=== PATIENT | female | born 1935 | race Caucasian/White ===

== ENCOUNTER 2017-02-24 17:05 | Observation (INO) | payer MEDICARE ==
[~2017-02-24] VITALS: Ht 160 cm; Wt 68.2 kg
[~2017-02-24 17:05] MED LIST: CIPR500T4 PO; CLOP75TA27 PO; METO25TA4 PO; ONDA4TAB8 PO; PANT40TA4 PO; SERT25TA83 PO
[2017-02-24] MEDS ORDERED: ONDANSETRON 4 MG INJ IV STA (17:32)
[2017-02-24] MEDS ORDERED: LORAZEPAM 2 MG INJ IV ONE (18:00)
[2017-02-24 18:21] LABS: ADD SCAN DIFF NO
[2017-02-24 18:23] LABS: BASOPHILS % 0.2 % (0.0-2.0); EOSINOPHILS # 0.1 10^3/ul (0.0-0.5); EOSINOPHILS % 1.2 % (0.0-7.0); HEMATOCRIT 39.8 % (37.0-47.0); HEMOGLOBIN 13.3 g/dl (12.0-16.0); LYMPHOCYTES # 1.1 10^3/ul (0.8-2.9); LYMPHOCYTES % 12.1 % (15.0-51.0); MEAN CORPUSCULAR HEMOGLOBIN 30.8 pg (29.0-33.0); MEAN CORPUSCULAR HGB CONC 33.4 g/dl (32.0-37.0); MEAN CORPUSCULAR VOLUME 92.1 fl (82.0-101.0); MEAN PLATELET VOLUME 9.5 fl (7.4-10.4); MONOCYTE # 0.4 10^3/ul (0.3-0.9); MONOCYTES % 4.1 % (0.0-11.0); NEUTROPHIL # 7.6 10^3/ul (1.6-7.5); NEUTROPHILS % 81.5 % (39.0-77.0); PLATELET COUNT 279 10^3/UL (140-415); RED BLOOD COUNT 4.32 10^6/ul (4.20-5.40); RED CELL DISTRIBUTION WIDTH 12.8 % (11.5-14.5); WHITE BLOOD COUNT 9.3 10^3/ul (4.8-10.8)
[2017-02-24] MEDS ORDERED: NIT4 SL (18:32)
[2017-02-24 18:34] LABS: INR 0.91; PROTIME 12.3 Sec (12.2-14.2)
[2017-02-24 18:35] LABS: PARTIAL THROMBOPLASTIN TIME 22.6 Sec (25.0-35.0)
[2017-02-24 18:42] LABS: CHLORIDE 103 mmol/L (97-110); SODIUM 140 mmol/L (135-144)
[2017-02-24 18:45] LABS: ANION GAP 16 (8-16); BLOOD UREA NITROGEN 16 mg/dl (7-20); CARBON DIOXIDE 25 mmol/L (21-31); CREATININE 0.57 mg/dl (0.44-1.00); GLUCOSE 158 mg/dl (70-220)
[2017-02-24 18:46] LABS: CALCIUM 9.5 mg/dl (8.4-10.2)
--- NOTE | 2017-02-24 19:03 | RADRPT ---
PROCEDURE: CT Brain without contrast. CLINICAL INDICATION: Possible Stroke TECHNIQUE: A CT of the brain was performed utilizing axial imaging from the skull base through the vertex without IV contrast. Multiplanar reformatted images were made. Images were reviewed on a Get In workstation. The CTDIvol is 44 mGy and the DLP is 720 mGycm. COMPARISON: Head CT March 21, 2016 FINDINGS: There is moderate diffuse cerebral volume loss with sulcal and ventricular dilatation. No discrete extra-axial fluid collection or masses seen. The ventricles are in the midline and of normal contou r and configuration. There is normal diaz-white discrimination throughout the brain with no evidenc e of an infarct. No intracranial hemorrhage or mass is identified. There is normal aeration of the visualized paranasal sinuses. IMPRESSION: Age-appropriate atrophy. No intracranial hemorrhage or mass. No infarct identified. .Carlos Brooks MD, MD Date Time Electronically viewed and signed by .Carlos Brooks MD, on 02/24/2017 19:02 .A/
--- NOTE | 2017-02-24 19:18 | RADRPT ---
PROCEDURE: XR Chest. CLINICAL INDICATION: Stroke and dyspnea TECHNIQUE: AP Portable chest. COMPARISON: 09/08/2016 chest x-ray FINDINGS: The soft tissues and bones are normal. Hyperinflation is present. Correlate with radiographic evide nce for COPD. No focal infiltrates, masses, or effusions are noted. The mediastinum and heart are remarkable for mild cardiomegaly and vascular calcifications of the thoracic aorta.. No pneumothora x is present. IMPRESSION: 1. No radiographic evidence for acute cardiopulmonary disease. 2. Hyperinflation and correlate with radiographic evidence for COPD. 3. Mild cardiomegaly and atherosclerotic vascular disease RPTAT: HDC .Shoshana Rm MD, MD Date Time Electronically viewed and signed by .Shoshana Rm MD, on 02/24/2017 19:17 .C/
--- NOTE | 2017-02-24 19:29 | RADRPT ---
PROCEDURE: CT abdomen and pelvis without contrast. CLINICAL INDICATION: Abdominal Pain TECHNIQUE: CT scan of the abdomen and pelvis without contrast was performed and is reconstructed a t 2.5 mm contiguous axial intervals from the dome of the diaphragm to the inferior pubic rami.. The patient was scanned without intravenous contrast. Sagittal and coronal reformatted images were obt ained from the axial source images. The calculated radiation dose measures 400 mGy centimeters. The CTDI measures 8 mGy. COMPARISON: None. FINDINGS: The lung bases are clear of any infiltrate or nodule. No effusion is seen. There is a small hiatal hernia. The liver is of normal size, contour and attenuation with no mass or ductal dilatation. No gallston es are visualized. No adrenal or pancreatic abnormalities present. there is a 1 cm indeterminate h ypodense nodule on the anterior spleen and a 1.5 cm indeterminate hypodense nodule on the dorsal asp ect of the spleen. Kidneys are of normal size and contour. No hydronephrosis, calculus or masses seen. Ureters are o f normal course and caliber with no stone. No bladder mass or stone is present. Uterus is atrophic. No adnexal masses present. There is a ring pessary in the pelvis. There is no aneurysm. There are vascular calcifications. No adenopathy is present. No bowel mass or obstruction is present. There are scattered diverticula. The appendix is normal. No phlegmon, ascites or pneumoperitoneum is visualized. There is a severe chronic compression fracture of L1. No acute osseous abnormality is present. IMPRESSION: No evidence of urolithiasis, obstructive uropathy, diverticulitis or appendicitis. Diverticulosis. Hiatal hernia. Vascular calcifications. Chronic compression fracture L1. .Carlos Brooks MD, MD Date Time Electronically viewed and signed by .Carlos Brooks MD, MD on 02/24/2017 19:29 .A/
[2017-02-24] MEDS ORDERED: ASPIRIN 325 MG TAB PO ONE (19:30)
[2017-02-24] MEDS ORDERED: ONDANSETRON 4 MG INJ IV PRN (20:00)
[2017-02-24 20:03] LABS: TROPONIN-I < 0.012 ng/ml (0.00-0.12)
--- NOTE | 2017-02-24 20:16 | ERA ---
ER Documentation Chief Complaint Date/Time DATE: 02/24/17 TIME: 20:13 Chief Complaint n/v, dizziness. pt. actively vomiting in triage. HPI Patient is a 81-year-old female with hypertension who presents with dizziness and vomiting. She tried Zofran without any help. The symptoms started at 2:30 PM and had been constant. She feels like the room is spinning. She denies diarrhea. She has no headache and no abdominal pain. She has no weakness and no slurred speech. Upon review of old medical records this the patient's eighth visit to the ER since 2007. She does not know the name of her primary doctor. ROS All systems reviewed and are negative except as per history of present illness. Medications Home Meds Active Scripts Ondansetron Hcl* (Zofran*) 4 Mg Tablet, 4 MG PO Q8H Y for NAUSEA AND/OR VOMITING , #20 TAB Prov:LINDSEY COPPOLA MD 09/08/16 Reported Medications Nitroglycerin* (Nitrostat*) 0.4 Mg Tab.subl, 0.4 MG SL Q5MIN Y for CHEST PAIN, BOTTLE NEEDED 02/24/17 Clopidogrel Bisulfate (Clopidogrel) 75 Mg Tablet, 75 MG PO DAILY, #30 TAB 09/08/16 Metoprolol Tartrate* (Lopressor*) 25 Mg Tablet, 25 MG PO DAILY, #30 03/18/16 Discontinued Reported Medications Sertraline Hcl* (Sertraline Hcl*) 25 Mg Tablet, 25 MG PO DAILY for 30 Days 03/18/16 Pantoprazole* (Pantoprazole*) 40 Mg Tablet.dr, 40 MG PO AC BREAKFAST for 30 Days 03/18/16 Discontinued Scripts Ciprofloxacin Hcl* (Ciprofloxacin Hcl*) 500 Mg Tablet, 500 MG PO BID for 5 Days , TAB Prov:LINDSEY COPPOLA MD 09/08/16 Allergies Allergies: Coded Allergies: Penicillins (Verified Allergy, Mild, RASHES, 02/24/17) acetaminophen (Verified Allergy, Mild, RASHES, 02/24/17) PMhx/Soc History of Surgery: Yes (vascular surgery) Anesthesia Reaction: No Hx Neurological Disorder: No Hx Respiratory Disorders: No Hx Cardiac Disorders: No Hx Psychiatric Problems: Yes Hx Miscellaneous Medical Probl: No Hx Alcohol Use: No Hx Substance Use: No Hx Tobacco Use: No Smoking Status: Never smoker FmHx Family History: No diabetes Physical Exam Vitals Vital Signs Date Time Temp Pulse Resp B/P Pulse Ox O2 Delivery O2 Flow Rate FiO2 02/24/17 20:00 61 18 142/62 96 Room Air 02/24/17 19:17 62 13 168/83 99 Room Air 02/24/17 18:09 Nasal Cannula 2 02/24/17 17:11 97.8 70 20 200/86 95 Physical Exam Const: Moderate distress secondary to vomiting Head: Atraumatic Eyes: Normal Conjunctiva ENT: Normal External Ears, Nose and Mouth. Neck: Full range of motion..~ No meningismus. Resp: Clear to auscultation bilaterally Cardio: Regular rate and rhythm, no murmurs Abd: Soft, non tender, non distended. Normal bowel sounds Skin: No petechiae or rashes Back: No midline or flank tenderness Ext: No cyanosis, or edema Neur: Awake and alert, cranial nerves II through XII intact, able to move all 4 extremities Result Diagram: 02/24/17180902/24/171809 Results 24 hrs Laboratory Tests Test 02/24/17 18:10 White Blood Count 9.310^3/ul Red Blood Count 4.3210^6/ul Hemoglobin 13.3g/dl Hematocrit 39.8% Mean Corpuscular Volume 92.1fl Mean Corpuscular Hemoglobin 30.8pg Mean Corpuscular Hemoglobin Concent 33.4g/dl Red Cell Distribution Width 12.8% Platelet Count 23677^3/UL Mean Platelet Volume 9.5fl Neutrophils % 81.5% Lymphocytes % 12.1% Monocytes % 4.1% Eosinophils % 1.2% Basophils % 0.2% Nucleated Red Blood Cells % 0.0/100WBC Neutrophils # 7.610^3/ul Lymphocytes # 1.110^3/ul Monocytes # 0.410^3/ul Eosinophils # 0.110^3/ul Basophils # 0.010^3/ul Nucleated Red Blood Cells # 0.010^3/ul Prothrombin Time 12.3Sec Prothrombin Time Ratio 1.0 INR International Normalized Ratio 0.91 Activated Partial Thromboplast Time 22.6Sec Sodium Level 140mmol/L Potassium Level 4.0mmol/L Chloride Level 103mmol/L Carbon Dioxide Level 25mmol/L Anion Gap 16 Blood Urea Nitrogen 16mg/dl Creatinine 0.57mg/dl Glucose Level 158mg/dl Hemoglobin A1c 6.3% Calcium Level 9.5mg/dl Troponin I < 0.012ng/ml Current Medications Medications (Trade) Dose Ordered Sig/Alejandrina Route PRN Reason Start Time Stop Time Status Last Admin Dose Admin Ondansetron HCl (Zofran Inj) 4 mg ONCE STAT IV 02/24/17 17:32 02/24/17 17:34 DC 02/24/17 19:06 Lorazepam (Ativan) 0.5 mg ONCE ONCE IV 02/24/17 18:00 02/24/17 18:01 DC 02/24/17 19:06 Aspirin (Aspirin) 325 mg ONCE ONCE PO 02/24/17 19:30 02/24/17 19:31 DC 02/24/17 19:36 Ondansetron HCl (Zofran Inj) 4 mg ER BRIDGE PRN IV NAUSEA AND/OR VOMITING 02/24/17 20:00 02/25/17 19:59 Procedures/MDM EKG read by me: Rate/Rhythm: Regular rate and rhythm at a rate of 66 Intervals: Normal Impression: No evidence of ischemia or arrhythmia CT head shows no acute intracranial hemorrhage per radiology. Patient is a 81-year-old female with hypertension presents with dizziness and vomiting. I am concerned about a potential posterior circulation stroke. The onset of these symptoms were is unclear and I do not believe she is a TPA candidate at this time. The patient was given aspirin after she passed a swallow evaluation. She had an NIH stroke scale performed by nursing. The patient will be admitted to the panel team and I spoke with Dr. Thompson. She will be admitted to a telemetry bed. I doubt acute coronary syndrome, intra-cranial hemorrhage, or intracranial mass. Departure Diagnosis: Primary Impression: Dizziness Additional Impression: Vomiting Qualified Code: R11.2 - Intractable vomiting with nausea, unspecified vomiting type Condition: ERIK Baeza MD Feb 24, 2017 20:16
[2017-02-24 20:30] VITALS: TEMP 97.1
[2017-02-24 21:14] VITALS: PULSE 69
[2017-02-24 21:21] VITALS: BP 158/71; RESP 17
[2017-02-24 22:31] VITALS: Ht 160 cm; Wt 68.2 kg
[2017-02-25] VITALS (14 sets, daily range): BP systolic 139–188; BP diastolic 70–87; PULSE 53–63; RESP 16–22
--- NOTE | 2017-02-25 06:46 | HP ---
Date/Time of Note Date/Time of Note DATE: 02/25/17 TIME: 06:37 Assessment/Plan VTE Prophylaxis VTE Prophylaxis Intervention: heparin Assessment/Plan Assessment/Plan 1. Dizziness/Vertigo - Cont telemetry monitoring, fall precautions. Will obtain MRI of brain 2. Nausea/Vomiting: - likely 2/2 # 1. PRN anti-emetics. CT abd/pelvis was neg for acute findings 3. Essential hypertension - stable - continue med and adjust as needed 4. Type II DM - insulin while in house, hold metformin, check HgbA1c 5. Depression - continue with zoloft GI ppx - PPI DVT ppx - Heparin subq HPI/ROS Admit Date/Time Admit Date/Time Feb 24, 2017 at 19:43 Hx of Present Illness Patient is an 81 yo female with a past medical history of hypertension, type II DM, and depression who came in because of dizziness. For the last few days she has multiple episodes of vomiting, nausea, non-bilious/non-bloody in nature, with dizziness. c/o generalized weakness. She was admitted in March [address] head and carotid doppler u/s were neg. Denies any recent travel, chest pain, shortness of breath, blurriness in vision, headaches, urinary/bowel irregularities, fevers or other changes. She has never had this in the past. In ED she did have dizziness and vomited in triage. CT head was neg for any acute infarct. CT abd/pelvis showed hiatal hernia and chronic L1 compression fx , otherwise no acute findings. Lans and vitals ok. PMH/Family/Social Social History Smoking Status: Never smoker Exam/Review of Systems Vital Signs Vitals Vital Signs Date Time Temp Pulse Resp B/P Pulse Ox O2 Delivery O2 Flow Rate FiO2 02/25/17 04:53 57 02/25/17 04:02 98.6 21 154/76 97 02/24/17 20:30 Room Air 02/24/17 18:09 2 Exam Constitutional: other (No acute distress. sleepy, but arousable) Head: atraumatic, normocephalic Eyes: PERRL Respiratory: clear to auscultation, normal air movement Cardiovascular: nl pulses, regular rate and rhythm Gastrointestinal: soft Extremities: normal pulses Neurological: other (no focal weakness) Labs Result Diagram: 02/24/17180902/24/170 Medications Medications Current Medications Aspirin (Aspirin) 81 mg DAILY PO ; Start 02/25/17 at 09:00 Atorvastatin Calcium (Lipitor) 40 mg HS PO ; Start 02/25/17 at 21:00 Heparin Sodium (Porcine) (Heparin (5000 Units/0.5 ml)) 5,000 unit AM SC ; Start 02/25/17 at 09:00 STAR OLMOS MD Feb 25, 2017 06:46
[2017-02-25 07:23] LABS: ADD SCAN DIFF NO
[2017-02-25 07:28] LABS: BASOPHILS % 0.2 % (0.0-2.0); EOSINOPHILS # 0.2 10^3/ul (0.0-0.5); EOSINOPHILS % 1.9 % (0.0-7.0); HEMOGLOBIN 12.3 g/dl (12.0-16.0); LYMPHOCYTES # 1.4 10^3/ul (0.8-2.9); LYMPHOCYTES % 16.8 % (15.0-51.0); MEAN CORPUSCULAR HEMOGLOBIN 29.9 pg (29.0-33.0); MEAN CORPUSCULAR HGB CONC 32.4 g/dl (32.0-37.0); MEAN CORPUSCULAR VOLUME 92.2 fl (82.0-101.0); MEAN PLATELET VOLUME 9.6 fl (7.4-10.4); MONOCYTE # 0.6 10^3/ul (0.3-0.9); MONOCYTES % 6.9 % (0.0-11.0); NEUTROPHIL # 6.3 10^3/ul (1.6-7.5); NEUTROPHILS % 73.7 % (39.0-77.0); PLATELET COUNT 287 10^3/UL (140-415); RED BLOOD COUNT 4.12 10^6/ul (4.20-5.40); RED CELL DISTRIBUTION WIDTH 12.9 % (11.5-14.5); WHITE BLOOD COUNT 8.6 10^3/ul (4.8-10.8)
[2017-02-25 07:33] LABS: POTASSIUM 3.8 mmol/L (3.5-5.1)
[2017-02-25 07:35] LABS: CREATININE 0.61 mg/dl (0.44-1.00)
[2017-02-25 07:36] LABS: CHOL/HDL RATIO 2.3 RATIO
--- NOTE | 2017-02-25 13:40 | RADRPT ---
Echocardiogram Report Patient Name: CHERYL MORALES Gender: Female Date: 1935 Study Date: 25-Feb-2017 Relocation Commissioner: TRENT Anderson [facility] Location: 525 Ref. Physician: STAR OLMOS Quality: Adequate Procedures: Transthoracic echocardiogram with complete 2D, M-Mode, and doppler examination. Indications: vertigo. 2D/M Mode Doppler Measurement Value Normal Ranges Measurement Value Normal Ranges LVIDd 2D 4.1 3.5 - 5.6 cm AV Peak Yoel 1.9 m/sec LVIDs 2D 2.3 2.1 - 4.1 cm AV Peak PG 14.0 mmHg FS 2D 43.3 % LVOT Peak Yoel 1.4 m/sec LVPWd 2D 0.8 0.6 - 1.1 cm LVOT Peak PG 8.0 mmHg IVSd 2D 0.8 0.6 - 1.1 cm MV E Peak Yoel 0.9 m/sec IVS/LVPW 2D 1.0 MV A Peak Yoel 1.3 m/sec AoR Diam 2D 2.5 2.0 - 3.7 cm MV E/A 0.7 LA/Ao 2D 1 0 - 1 MV Decel Time 296 msec EDV 2D 66.9 cm3 MV E/A 0.7 ESV 2D 12.2 cm3 TR Peak Yoel 2.5 m/sec LA Dimen 2D 3.3 2.3 - 4.0 cm TR Peak PG 24.0 mmHg RVSP 27.0 mmHg Findings Left Ventricle: Normal left ventricular systolic function. Normal left ventricular cavity size. Normal left ventricular wall thickness. Ejection fraction is visually estimated at 65 %. Right Ventricle: Normal right ventricular size. Normal right ventricular systolic function. Left Atrium: There is moderate enlargement of left atrium. Right Atrium: There is mild enlargement of right atrium. Mitral Valve: Severe mitral annular calcification. Mild mitral valve regurgitation. Aortic Valve: No significant aortic stenosis or insufficiency. Aortic cusps appear mildly calcified. Tricuspid Valve: Normal appearance of the tricuspid valve. Estimated peak PA systolic pressure 26 mmHg. There is mild tricuspid regurgitation. Pulmonic Valve: Pulmonic valve not well visualized. Pericardium: Normal pericardium with no significant pericardial effusion. Aorta: Normal aortic root. IVC: Normal size and normal respiratory collapse consistent with normal right atrial pressure. Conclusions 1.Normal left ventricular systolic function. Normal left ventricular cavity size. Normal left ventricular wall thickness. Ejection fraction is visually estimated at 65 %. 2.No significant valvular stenosis or regurgitation seen. 3.Estimated peak PA systolic pressure 26 mmHg based on RA pressure of 3 mmHg. Electronically Signed By: Renato Helton 25-Feb-2017 13:40:03 -0700 Patient Name: CHERYL MORALES Study Date: 25-Feb-2017 [id number]
[2017-02-25] MEDS: ASPIRIN 81 MG TAB PO SCH (14:37)
[2017-02-25] MEDS: HEPARIN 5,000 UNIT/0.5 ML VIAL SC SCH (14:43)
--- NOTE | 2017-02-25 19:39 | RADRPT ---
PROCEDURE: MRI Brain without contrast. CLINICAL INDICATION: Dizziness, vomiting, vertigo TECHNIQUE: Multiplanar MRI of the brain without contrast was performed on a 3.0 T scanner with the following sequences obtained: T1-weighted, T2-weighted/FLAIR, diffusion weighted (with ADC map), GR E. COMPARISON: CT brain 02/24/2017 FINDINGS: No acute/recent ischemic infarction or intracranial hemorrhage / blood degradation products are iden tified. No extra-axial fluid collection is seen. There is no mass effect. No midline shift is identified. The ventricles and sulci are mildly enlarged, compatible with generalized volume loss. Minimal areas of increased T2 / FLAIR signal intensity are present in the periventricular and deep w destiny matter, nonspecific but likely related to chronic small vessel ischemic changes. Flow voids are identified in the proximal intracranial arteries and dural sinuses suggesting patency . Large right and moderate left maxillary sinus mucous retention cysts, severe right sphenoid and mild bilateral ethmoid sinus mucosal thickening are seen. IMPRESSION: 1. No evidence of acute intracranial pathology. 2. Mild generalized volume loss, with minimal chronic small vessel ischemic changes. RPTAT: HESO .Ranjeet Pruitt MD, MD Date Time Electronically viewed and signed by .Ranjeet Pruitt MD, MD on 02/25/2017 19:38 .O/
[2017-02-25] MEDS ORDERED: ATORVASTATIN 40 MG TAB PO SCH (21:00)
[2017-02-26] VITALS (9 sets, daily range): BP systolic 148–164; BP diastolic 65–72; PULSE 54–62; RESP 18–20
[2017-02-26 07:42] LABS: ADD UMIC YES; URINE BILIRUBIN (Dip) NEGATIVE (NEGATIVE); URINE BLOOD (Dip) 2+ (NEGATIVE); URINE COLOR LT. YELLOW (YELLOW); URINE GLUCOSE (Dip) NEGATIVE (NEGATIVE); URINE KETONES (Dip) NEGATIVE (NEGATIVE); URINE LEUKOCYTE ESTERASE (Dip) 3+ (NEGATIVE); URINE NITRITE (Dip) NEGATIVE (NEGATIVE); URINE TOTAL PROTEIN (Dip) NEGATIVE (NEGATIVE); URINE UROBILINOGEN (Dip) 0.2 E.U./dL (0.1-1.0)
[2017-02-26 07:56] LABS: BACTERIA,URINE MANY
[2017-02-26 08:14] LABS: BARBITURATES Negative (NEGATIVE); BENZODIAZEPINES Negative (NEGATIVE); CANNABINOIDS Negative (NEGATIVE); COCAINE Negative (NEGATIVE); OPIATES Negative (NEGATIVE)
[2017-02-26] MEDS: ASPIRIN 81 MG TAB PO SCH (10:07)
[2017-02-26] MEDS: HEPARIN 5,000 UNIT/0.5 ML VIAL SC SCH (10:09)
[2017-02-26] MEDS ORDERED: MECL12.574 PO (14:29)
--- NOTE | 2017-02-26 14:31 | PDOCDIS ---
Discharge Instructions CONDITION Patient Condition: Good HOME CARE INSTRUCTIONS: Special Diet: CARDIAC ACTIVITY: Activity Restrictions: No Restrictions FOLLOW UP/APPOINTMENTS Appointments F/U WITH YOUR PCP IN 1-2 WEEKS IMER JONES Feb 26, 2017 14:31
--- NOTE | 2017-02-26 18:22 | DS ---
DATE OF ADMISSION: 02/24/2017 DATE OF DISCHARGE: 02/26/2017 DISCHARGE DIAGNOSES: 1. Dizziness. MRI is negative, likely secondary to benign positional vertigo, discharge with [facility]. 2. Hypertension, stable. Continue home medications. 3. Diabetes. Continue home medications. 4. Depression. Continue home medications. HOSPITAL COURSE: The patient is an 81-year-old female with a history of hypertension, type 2 diabet es, depression. The patient was complaining of dizziness for several days prior to admission. She has had several episodes for vomiting, nausea associated with dizziness. The patient had a previous CT head and carotid Dopplers that were negative. The patient was admitted. It was felt that she n eeds CT and MRI. The patient did have an MRI that was negative for any acute pathology. She did h ave mild generalized volume loss and minimal chronic small vessel ischemic changes. The patient was not on any meclizine, but it was felt that she would benefit from meclizine. She was ambulating on her own. She was felt to be stable for discharge. The patient did have another brain CT of note h ere that showed age appropriate atrophy and no acute findings. Chest x-ray here showed no acute pro cess. She did have evidence of chronic obstructive pulmonary disease. Patient had abdominal pelvis CT here that showed no evidence of any acute process; there is a hiatal hernia, vascular calcificat ions and chronic compression fracture of L1, and so the patient was stable for discharge home with [facility]. On the day of discharge, the patient's vitals, laboratories, and p hysical exam demonstrated acute complaints. Questions were answered. Physical exam once again was stable. CONDITION ON DISCHARGE: Stable. DISPOSITION: To home with [facility]. MEDICATIONS: The patient to continue usual home medications. She was also given a prescription for meclizine 12.5 mg p.o. q. 8 hours p.r.n. for dizziness. Once again, she will continue her home med ications. FOLLOWUP: The patient is to follow up with PCP in 1 to 2 weeks. Greater than 30 minutes were spent coordinating discharge of this patient. Dictated By: IMER JONES MD BS/NTS Conf#: [id number] DID#: [id number]
== END 2017-02-26 16:38 | disposition home or self-care (01) ==
LOC: E/R 17:05 → TEL 19:43
PROVIDERS: ADMIT Internal Medicine; ATTEND Internal Medicine
DX: R42 Dizziness and giddiness (principal); I10 Essential (primary) hypertension; E11.9 Type 2 diabetes mellitus without complications; F32.9 Major depressive disorder, single episode, unspecified; Z88.0 Allergy status to penicillin; Z88.6 Allergy status to analgesic agent
CPT/HCPCS: 70450; 70551; 71010; 74176; 80048; 80061; 80307; 81001; 83036; 84484; 85025; 85610; 85730; 92610; 93005; 93306; 96374; 96375; 97116; 97162; 97530; 99285; G0378; G8996; G8997; G8998; J1644; J2060; J2405; 81003; 99217

== ENCOUNTER 2017-06-15 03:26 | Emergency (ER) | payer MEDICARE ==
[~2017-06-15] VITALS: Ht 162.6 cm; Wt 60.0 kg
[~2017-06-15 03:26] MED LIST changes: -CIPR500T4 PO; +MECL12.574 PO; +NIT4 SL; -PANT40TA4 PO; -SERT25TA83 PO
[2017-06-15 03:29] VITALS: Ht 162.6 cm; Wt 60.0 kg
[2017-06-15] MEDS ORDERED: DIPHENHYDRAMINE 50 MG INJ IV STA (03:55)
[2017-06-15] MEDS ORDERED: SOD CHLORIDE 0.9% 500 ML IV STA (03:55)
[2017-06-15] MEDS ORDERED: ONDANSETRON 4 MG INJ IV STA (03:55)
[2017-06-15 04:30] LABS: BASOPHIL # 0.1 10^3/ul (0.0-0.1); BASOPHILS % 0.5 % (0.0-2.0); EOSINOPHILS # 0.2 10^3/ul (0.0-0.5); EOSINOPHILS % 1.7 % (0.0-7.0); HEMATOCRIT 40.7 % (37.0-47.0); HEMOGLOBIN 13.3 g/dl (12.0-16.0); LYMPHOCYTES # 2.4 10^3/ul (0.8-2.9); LYMPHOCYTES % 24.1 % (15.0-51.0); MEAN CORPUSCULAR HEMOGLOBIN 29.6 pg (29.0-33.0); MEAN CORPUSCULAR HGB CONC 32.7 g/dl (32.0-37.0); MEAN CORPUSCULAR VOLUME 90.4 fl (82.0-101.0); MEAN PLATELET VOLUME 9.4 fl (7.4-10.4); MONOCYTE # 0.4 10^3/ul (0.3-0.9); MONOCYTES % 4.4 % (0.0-11.0); NEUTROPHIL # 6.9 10^3/ul (1.6-7.5); NEUTROPHILS % 68.5 % (39.0-77.0); PLATELET COUNT 267 10^3/UL (140-415); RED CELL DISTRIBUTION WIDTH 13.5 % (11.5-14.5)
[2017-06-15 04:49] LABS: ANION GAP 17 (8-16); BLOOD UREA NITROGEN 21 mg/dl (7-20); CALCIUM 9.8 mg/dl (8.4-10.2); CARBON DIOXIDE 25 mmol/L (21-31); CHLORIDE 104 mmol/L (97-110); CREATININE 0.71 mg/dl (0.44-1.00); GLUCOSE 179 mg/dl (70-220); POTASSIUM 4.1 mmol/L (3.5-5.1); SODIUM 142 mmol/L (135-144)
[2017-06-15 04:54] LABS: INR 1.01; PARTIAL THROMBOPLASTIN TIME 24.6 Sec (25.0-35.0); PROTIME 13.3 Sec (12.2-14.2)
[2017-06-15 05:20] LABS: TROPONIN-I < 0.012 ng/ml (0.00-0.12)
[2017-06-15] MEDS ORDERED: SERT25TA83 PO (05:42)
--- NOTE | 2017-06-15 05:44 | ERD ---
ER Documentation Chief Complaint Date/Time DATE: 06/15/17 TIME: 05:43 Chief Complaint dizziness w/ vomiting since yesterday HPI [id number] female complains of vertigo with vomiting since yesterday. Vomiting is 2-3 times and associated only with preceding vertigo. Nonbilious and nonbloody. No fevers or chills. No other current issues. ROS All systems reviewed and are negative except as per history of present illness. Medications Home Meds Active Scripts Meclizine Hcl* (Antivert*) 12.5 Mg Tab, 12.5 MG PO Q8H Y for DIZZINESS, #30 TAB Prov:IMER JONES 02/26/17 Reported Medications Sertraline Hcl* (Sertraline Hcl*) 25 Mg Tablet, 25 MG PO DAILY, #30 TAB 06/15/17 Clopidogrel Bisulfate (Clopidogrel) 75 Mg Tablet, 75 MG PO DAILY, #30 TAB 09/08/16 Metoprolol Tartrate* (Lopressor*) 25 Mg Tablet, 25 MG PO DAILY, #30 03/18/16 Discontinued Reported Medications Nitroglycerin* (Nitrostat*) 0.4 Mg Tab.subl, 0.4 MG SL Q5MIN Y for CHEST PAIN, BOTTLE NEEDED 02/24/17 Discontinued Scripts Ondansetron Hcl* (Zofran*) 4 Mg Tablet, 4 MG PO Q8H Y for NAUSEA AND/OR VOMITING , #20 TAB Prov:LINDSEY COPPOLA MD 09/08/16 Allergies Allergies: Coded Allergies: Penicillins (Unverified Allergy, Mild, RASHES, 06/15/17) acetaminophen (Unverified Allergy, Mild, RASHES, 06/15/17) PMhx/Soc History of Surgery: Yes (VASCULAR ) Anesthesia Reaction: No Hx Neurological Disorder: No Hx Respiratory Disorders: No Hx Cardiac Disorders: Yes (HTN, HIGH CHOL, ) Hx Psychiatric Problems: No Hx Miscellaneous Medical Probl: Yes (HTN, DM2, depression, chronic L1 compression fx. ) Hx Alcohol Use: No Hx Substance Use: No Hx Tobacco Use: No Smoking Status: Never smoker Physical Exam Vitals Vital Signs Date Time Temp Pulse Resp B/P Pulse Ox O2 Delivery O2 Flow Rate FiO2 06/15/17 04:50 98.5 82 20 169/88 98 Room Air 06/15/17 03:29 98.5 85 20 184/84 98 Physical Exam Const: [] Head: Atraumatic Eyes: Normal Conjunctiva ENT: Normal External Ears, Nose and Mouth. Neck: Full range of motion..~ No meningismus. Resp: Clear to auscultation bilaterally Cardio: Regular rate and rhythm, no murmurs Abd: Soft, non tender, non distended. Normal bowel sounds Skin: No petechiae or rashes Back: No midline or flank tenderness Ext: No cyanosis, or edema Neur: Awake and alert Psych: Normal Mood and Affect Result Diagram: 06/15/173 06/15/17412 Results 24 hrs Laboratory Tests Test 06/15/17 04:13 White Blood Count 10.010^3/ul Red Blood Count 4.5010^6/ul Hemoglobin 13.3g/dl Hematocrit 40.7% Mean Corpuscular Volume 90.4fl Mean Corpuscular Hemoglobin 29.6pg Mean Corpuscular Hemoglobin Concent 32.7g/dl Red Cell Distribution Width 13.5% Platelet Count 55812^3/UL Mean Platelet Volume 9.4fl Neutrophils % 68.5% Lymphocytes % 24.1% Monocytes % 4.4% Eosinophils % 1.7% Basophils % 0.5% Nucleated Red Blood Cells % 0.0/100WBC Neutrophils # 6.910^3/ul Lymphocytes # 2.410^3/ul Monocytes # 0.410^3/ul Eosinophils # 0.210^3/ul Basophils # 0.110^3/ul Nucleated Red Blood Cells # 0.010^3/ul Prothrombin Time 13.3Sec Prothrombin Time Ratio 1.0 INR International Normalized Ratio 1.01 Activated Partial Thromboplast Time 24.6Sec Sodium Level 142mmol/L Potassium Level 4.1mmol/L Chloride Level 104mmol/L Carbon Dioxide Level 25mmol/L Anion Gap 17 Blood Urea Nitrogen 21mg/dl Creatinine 0.71mg/dl Glucose Level 179mg/dl Calcium Level 9.8mg/dl Troponin I < 0.012ng/ml Current Medications Medications (Trade) Dose Ordered Sig/Alejandrina Route PRN Reason Start Time Stop Time Status Last Admin Dose Admin Sodium Chloride (NS) 500 ml @ 500 mls/hr Q1H STAT IV 06/15/17 03:55 06/15/17 04:54 DC 8/1/17 04:18 Ondansetron HCl (Zofran Inj) 4 mg ONCE STAT IV 06/15/17 03:55 06/15/17 03:56 DC 06/15/17 04:17 Diphenhydramine HCl (Benadryl) 25 mg ONCE STAT IV 06/15/17 03:55 06/15/17 03:56 DC 06/15/17 04:18 Procedures/MDM EKG: Rate/Rhythm: Normal Sinus Rhythm QRS, ST, T-waves: No changes consistent w/ acute ischemia Impression: No evidence of ischemia or arrhythmia Chest X-ray 1V Interpreted by me: Soft Tissue: No acute abnormalities Bones: No acute abnormalities Mediastinum/Cardiac Silhouette/Lungs: No acute abnormalities Medical decision makin-year-old female as well as with reactive issues of previous vertigo. Patient had full workup including negative MRI back in February. Patient says symptoms are resolved with fluids, Zofran, Bentyl-year- old. Patient be discharged on meclizine. Told to follow-up here for worsening symptomatology otherwise follow with PCP. Departure Diagnosis: Primary Impression: Dizziness Condition: Stable STAR GARDINER Jun 15, 2017 05:44
[2017-06-15] MEDS ORDERED: MECL12.574 PO (05:56)
--- NOTE | 2017-06-15 06:05 | RADRPT ---
PROCEDURE: CT Brain without contrast. CLINICAL INDICATION: Headache and dizziness TECHNIQUE: CT scan of the brain was performed on a multidetector high-resolution CT scan. Axial im aging was obtained of the brain without contrast administration. Coronal and sagittal reformatted i mages were obtained from the axial source images. Standard CT scan of the head without contrast prot ocols were performed. The total exam CTDI equals 45.01 mGy and the total exam DLP equals 720.23 mGy-cm. One or more of the following dose reduction techniques were used: - Automated exposure control. - Adjustment of the mA and/or kV according to patient size. Use of iterative reconstruction technique. COMPARISON: CT head without contrast 02/24/2017 FINDINGS: The ventricular system and peripheral CSF spaces are proportionately prominent consistent with the p atient's age. Negative for intracranial masses hemorrhages or midline shift. There is mild periven tricular deep white matter changes that is nonspecific and consistent with chronic microvascular isc hemic disease. negative for intracranial masses hemorrhages there is atherosclerotic hard plaque in volving the distal vertebral arteries and right cavernous carotid artery. The bones and calvarium a re intact. There is chronic paranasal sinus disease. The mastoids are unremarkable. IMPRESSION: 1. No significant change. 2. Mild nonspecific chronic microvascular ischemic disease without evidence of intracranial masses hemorrhages midline shift. RPTAT:AAJJ Physician Slime Date Time Electronically viewed and signed by Physician Slime on 06/15/2017 06:04 COLE/
--- NOTE | 2017-06-15 06:30 | RADRPT ---
PROCEDURE: CHEST - 1 VIEW CLINICAL INDICATION: 81-year-old female with headaches and shortness of breath. TECHNIQUE: A single frontal AP semi-erect portable view of the chest was performed. The images we re reviewed on a PACS workstation. COMPARISON: Chest x-ray February 24, 2017. FINDINGS: The cardiomediastinal silhouette within normal limits. Chronic lung changes are present. There is m inimal left lower lung zone subsegmental atelectasis and/or scarring. There is no evidence for an in filtrate. There is no evidence for congestive heart failure. There is no evidence for pneumothorax. The osseous structures are intact. IMPRESSION: 1. Chronic lung changes. 2. Minimal left lower lung zone subsegmental atelectasis and/or scarring. .Samm Jerry MD, Date Time Electronically viewed and signed by .Samm Jerry MD, on 06/15/2017 06:29 .M/
[2017-06-15 07:11] VITALS: BP 132/64; PULSE 69; RESP 14; TEMP 98
== END 2017-06-15 07:15 | disposition home or self-care (01) ==
LOC: E/R 03:26
DX: R42 Dizziness and giddiness (principal); I10 Essential (primary) hypertension; E11.9 Type 2 diabetes mellitus without complications; R11.10 Vomiting, unspecified; Z79.01 Long term (current) use of anticoagulants
CPT/HCPCS: 70450; 71010; 80048; 84484; 85025; 85610; 85730; 93005; J1200; J2405; J7040; 36415; 96361; 96374; 96375

== ENCOUNTER 2017-12-30 17:51 | Observation (INO) | END 2017-12-31 15:48 | disposition home or self-care (01) ==